=== PATIENT | male | born 1970 | race Caucasian/White ===

== ENCOUNTER 2023-11-30 19:36 | Emergency (ER) | payer SELFPAY ==
[2023-11-30 19:38] VITALS: BP 148/94; PULSE 94; RESP 22; TEMP 37.3; O2SAT 98; O2SAT 99
--- NOTE | 2023-11-30 20:18 | US_ITS ---
ACR Level 3 findings have been noted. An addendum which confirms receipt of the report will follow. EXAM: US SCROTUM CLINICAL INDICATION: testicular pain TECHNIQUE: Realtime ultrasound of the testicles was performed with grayscale and Color Doppler analysis. COMPARISON: No relevant prior studies available. FINDINGS: RIGHT TESTICLE: No significant abnormality. Normal in size and echotexture. No focal lesion. Normal blood flow is present. The right testicle measures 4.3 x 3.4 x 3.0 cm. LEFT TESTICLE: No significant abnormality. Normal in size and echotexture. No focal lesion. Normal blood flow is present. The left testicle measures 4.1 x 2.6 x 1.8 cm. EPIDIDYMIDES: The right epididymis is enlarged measuring up to 2.2 cm with hyperemia throughout the head and tail and containing cysts, the largest measuring 8 mm. Normal color Doppler flow pattern in the left epididymis. SCROTUM: There is a large complex right-sided scrotal fluid collection with septations. Asymmetric right greater than left scrotal wall thickening and edema. Small left-sided hydrocele. US/Testicular with Arterial Flow IMPRESSION: Findings consistent with right-sided epididymitis. No discrete evidence of orchitis or other testicular pathology. Complex right-sided scrotal fluid collection may be pyocele. Associated scrotal wall thickening which may be indicative of cellulitis. Electronically Signed: Finn Brown DO at 21:33 EDT ,
--- NOTE | 2023-11-30 20:24 | EX.ED.DYSGE1 ---
HPI <BRITNEY Goddard - Last Filed: 11/30/23 22:36> History of Present Illness Chief Complaint: Abd Pain Narrative Narrative: Patient is a 53-year-old male with history of thyroid cancer that is on Synthroid, hyperlipidemia, type 2 diabetes who presents to the emergency department lower abdominal pain, right testicular pain. Patient states that he was on vacation earlier this week, he was driving his motorcycle, including a long car ride. Monday when he woke up, he felt fullness in his right testicle, had some slight pain. He then rode his bike from [place] to home. He thought that he was fever, he was taking Tylenol and Aleve. Today, the pain in his right testicle, lower abdomen was severe, and he is here for evaluation. Patient states his right testicle was the size of a softball it is now smaller however still painful. Patient states the right scrotum feels full. [facility] <BRITNEY Goddard - Last Filed: 11/30/23 22:36> [facility] Medical History (Updated 11/30/23 @ 22:32 by BRITNEY Goddard) Strep throat Thyroid cancer Home Medications ?Medication ?Instructions ?Recorded ?Last Taken ?Type cholecalciferol (vitamin D3) 25 2,000 unit PO DAILY 08/12/14 07/04/16 History mcg (1,000 unit) tablet (Vitamin D3) metformin 500 mg tablet 500 mg PO BREAKFAST 08/12/14 07/04/16 History omeprazole 20 mg capsule,delayed 20 mg PO DAILY 05/28/15 07/03/16 History release amoxicillin 875 mg-potassium 875 mg PO Q12H ##20 07/04/16 Unknown Rx clavulanate 125 mg tablet dicyclomine 10 mg capsule 20 mg (2 x 10 mg) PO TIDAC ##30 07/04/16 Unknown Rx levothyroxine 100 mcg tablet 200 mcg PO DAILY 07/04/16 07/04/16 History oxycodone-acetaminophen 5 mg-325 1 - 2 tab PO Q4H PRN PRN Pain #20 07/04/16 Unknown Rx mg tablet tabs ciprofloxacin HCl 500 mg tablet 500 mg PO BID #20 tabs 11/30/23 Unknown Rx (Cipro) ondansetron 4 mg disintegrating 4 mg PO Q8H PRN PRN Nausea #10 tabs 11/30/23 Unknown Rx tablet oxycodone-acetaminophen 5 mg-325 1 tab PO Q8H PRN pain 3 days #10 11/30/23 Unknown Rx mg tablet (Percocet) tabs Allergy/AdvReac Type Severity Reaction Status Date / Time bee venom protein (honey bee) Allergy Severe Anaphylaxis Verified 11/26/21 14:22 Surgical History (Updated 11/30/23 @ 19:59 by Tracee Davis) H/O thyroidectomy Social History Smoking Status: Current every day smoker tobacco type: cigarettes ROS <CALE GoddardC - Last Filed: 11/30/23 22:36> ROS ED ROS Narrative Constitutional: Negative for fever, chills, weight loss, weakness Eyes: Negative for vision loss, vision change, double vision ENT: Negative for any sore throat, ear pain, congestion Cardiovascular: Negative for any chest pain, tightness, palpitations Respiratory: Negative for any cough, sputum production, hemoptysis, dyspnea, dyspnea on exertion, orthopnea Gastrointestinal: Negative for any vomiting, diarrhea, constipation, blood in stool, blood in vomit. Positive for abdominal pain, nausea : Negative for any urinary frequency, dysuria, retention. Positive blood in urine, testicular pain Muscle skeletal: Negative for any neck pain, back pain Neurological: Negative for any headache, syncope, dizziness Skin: Negative for any rashes, itching, abrasions, lacerations Psychiatric: Negative for any depression, anxiety, stress, suicidal ideation, homicidal ideation Hematologic: Negative for any excessive bruising, easy bleeding EXAM <BRITNEY Goddard - Last Filed: 11/30/23 22:36> Physical Exam Narrative Exam Narrative: Vital signs reviewed. HEET: Head normocephalic atraumatic, TMs clear bilaterally. Posterior pharynx is clear, moist mucous membranes. Nares clear bilaterally. Neck: Supple with no lymphadenopathy or tenderness. No signs of meningismus. Cardiac: Regular rate and rhythm no murmurs gallops or rubs, equal peripheral pulses bilaterally. Respiratory: Lungs clear to auscultation bilaterally. No chest tenderness. Abdomen: Soft, nondistended. No abdominal bruit or pulsatile masses. No hepatosplenomegaly. Tenderness to the suprapubic area Extremities: No peripheral edema, no signs of gross trauma or deformity. Active full range of motion of all extremities. Neuro: Cranial nerves II through XII intact, no focal neurological deficits. Skin: Clean dry and intact with no rash, purpura, petechiae, vesicles or pustules. Backs/flank: No CVA tenderness, no midline spinal tenderness, no deformity. Psych: Normal mood and affect. No SI, HI or acute psychosis. Testicular: Testicular exam was completed, scrotum was slightly red, patient's left testicle was normal. Patient's right testicle was tender, edematous, firm. The right-sided scrotum did appear full. Const Vital Signs: 11/30/23 19:38 11/30/23 19:38 11/30/23 21:00 Temperature 99.1 F 99.1 F 99.5 F H Temperature Source Temporal Temporal Oral Pulse Rate 94 94 92 Respiratory Rate 22 H 22 H 18 Blood Pressure 148/94 H 148/94 H 156/87 H Blood Pressure Mean 112 112 110 Pulse Ox 98 99 93 Oxygen Delivery Method Room Air Room Air Room Air 11/30/23 22:58 Temperature 99 F Temperature Source Pulse Rate 97 Respiratory Rate 16 Blood Pressure 145/78 H Blood Pressure Mean 100 Pulse Ox 97 Oxygen Delivery Method Positive well nourished and well developed General Appearance ED: well developed <Dr. Bud Varghese MD - Last Filed: 11/30/23 23:06> Physical Exam Const Vital Signs: 11/30/23 19:38 11/30/23 19:38 11/30/23 21:00 Temperature 99.1 F 99.1 F 99.5 F H Temperature Source Temporal Temporal Oral Pulse Rate 94 94 92 Respiratory Rate 22 H 22 H 18 Blood Pressure 148/94 H 148/94 H 156/87 H Blood Pressure Mean 112 112 110 Pulse Ox 98 99 93 Oxygen Delivery Method Room Air Room Air Room Air 11/30/23 22:58 Temperature 99 F Temperature Source Pulse Rate 97 Respiratory Rate 16 Blood Pressure 145/78 H Blood Pressure Mean 100 Pulse Ox 97 Oxygen Delivery Method MDM <BRITNEY Goddard - Last Filed: 11/30/23 22:36> MDM Lab Data Labs: Laboratory Results - last 24 hr 11/30/23 11/30/23 19:55 21:00 WBC 10.4 RBC 5.00 Hgb 14.6 Hct 43.8 MCV 87.6 MCH 29.2 MCHC 33.3 RDW Std Deviation 45.7 H RDW Coeff of Ming 14.3 Plt Count 304 MPV 9.9 Immature Gran % (Auto) 0.300 Neut % (Auto) 80.6 H Lymph % (Auto) 10.5 L Hemphill % (Auto) 6.2 Eos % (Auto) 1.8 Baso % (Auto) 0.6 Absolute Neuts (auto) 8.3 H Absolute Lymphs (auto) 1.09 Nucleated RBC % 0 Sodium 139 Potassium 3.7 Chloride 105 Carbon Dioxide 29.0 Anion Gap 5 BUN 13 Creatinine 1.22 Est GFR (MDRD) Af Amer 80 Est GFR (MDRD) Non-Af 66 BUN/Creatinine Ratio 10.7 Glucose 120 H Lactic Acid 1.4 Calcium 8.8 Total Bilirubin 1.10 H AST 15 ALT 28 Alkaline Phosphatase 74 Total Protein 7.3 Albumin 3.2 Globulin 4.1 Albumin/Globulin Ratio 0.8 L Lipase 43 Urine Color Yellow Urine Clarity Cloudy Urine pH 7.0 Ur Specific [place] 1.010 Urine Protein 30 H Urine Glucose (UA) Normal Urine Ketones Negative Urine Occult Blood 150 H Urine Nitrite Positive H Urine Bilirubin Negative Urine Urobilinogen 1 H Ur Leukocyte Esterase 500 H Urine RBC 0-5 SEEN Urine WBC 50-100 SEEN Ur Squamous Epith Cells 0 SEEN Urine Bacteria 4+ Hyaline Casts 0-5 SEEN Urine Mucus 0 SEEN Radiography Diagnostic Testing: Clinical Impression(s) from Imaging Studies Testicular Ultrasound 11/30/23 20:18 IMPRESSION: Findings consistent with right-sided epididymitis. No discrete evidence of orchitis or other testicular pathology. Complex right-sided scrotal fluid collection may be pyocele. Associated scrotal wall thickening which may be indicative of cellulitis. Electronically Signed: Finn Brown DO at 21:33 EDT , ADDENDUM: 11/30/23 9104 IMPRESSION: Findings consistent with right-sided epididymitis. No discrete evidence of orchitis or other testicular pathology. Complex right-sided scrotal fluid collection may be pyocele. Associated scrotal wall thickening which may be indicative of cellulitis. N.B. : Gretta Chong , OT, confirmed on 11/30/2023 21:47:12 (ET) that the healthcare facility has received the radiology report. Electronically Signed: Finn Brown, at 21:33 EDT , Treatment and Re-Evaluation :: Differential diagnosis includes however is not limited to: Testicular torsion, incarcerated hernia, scrotal cellulitis, Joe's gangrene, inguinal hernia Patient appears to be in no respiratory distress, patient does appear to be in slight pain secondary to the right testicle, lower abdominal pain. Patient will receive a full abdominal workup including CBC CMP lipase as well as lactic acid. IV fluids, Zofran and morphine will be given. Patient will receive a ultrasound of the scrotum. Patient be given oral Tylenol for fever. Patient will be reevaluated. Patient's laboratory values show a normal CBC, patient's chemistries show a lactic acid that is negative. Creatinine is 1.2 which is normal. Lipase was negative. Patient's urinalysis shows 4+ bacteria 5100 white blood cells, 500 leukocytes, positive nitrates. Patient's ultrasound showed findings consistent with right-sided epididymitis. No discrete evidence of orchitis or other testicular pathology. Complex right-sided scrotal fluid collection may be pyocele. Associated scrotal wall thickening which may be indicative of cellulitis. Secondary to this finding, I did reach out to urology, I spoke with Dr. Echevarria. He stated to start the patient on Cipro, pain medicine, and he will see the patient this upcoming Monday. I spoke with the patient he is agreeable. Patient will be given IV Rocephin. Urine will be sent for culture. Patient was given strict return precaution return for uncontrollable pain, fever, chills, nausea or vomiting. He is happy with the plan of care, stable for discharge. <Dr. Bud Varghese MD - Last Filed: 11/30/23 23:06> [facility] MDM Narrative Medical decision making narrative: I have personally performed a face to face assessment of the patient and have reviewed the PRETTY Note. I performed a substantive portion of the visit including all aspects of the following. My vasquez findings include: History is couple days of gradual onset pain swelling redness right hemiscrotum. Pain in the lower abdomen as well started a little after that. No nausea or vomiting. Developed low-grade fevers and thought he urinated some blood the other day. No rectal pain. Is a diabetic but blood sugars well-controlled. Exam is erythematous, swollen, tender right testicle and epididymis. The perineum is unaffected and nontender there is no subcutaneous emphysema. The left hemiscrotum is normal-appearing and nontender. There is some mild tenderness in the groin but the abdomen is fairly benign. No palpable lymph nodes, obesity limits this part of the exam. Cremasterics intact. Penis normal. Other than erythematous skin in the right hemiscrotum no rashes. Medical Decison Making will consider testicular torsion, epididymoorchitis, less likely to be indirect hernia, will start with ultrasound labs urinalysis and reevaluate. I reviewed his labs as well as his ultrasound images and result which I agree with; it is consistent with epididymitis on the right, no orchitis or torsion, there is also a cystic structure with complex fluid. We discussed with urology see below. Outpatient treatment/follow-up is acceptable. Other additions or changes: [None] Lab Data Labs: Laboratory Results - last 24 hr 11/30/23 11/30/23 19:55 21:00 WBC 10.4 RBC 5.00 Hgb 14.6 Hct 43.8 MCV 87.6 MCH 29.2 MCHC 33.3 RDW Std Deviation 45.7 H RDW Coeff of Ming 14.3 Plt Count 304 MPV 9.9 Immature Gran % (Auto) 0.300 Neut % (Auto) 80.6 H Lymph % (Auto) 10.5 L [place] % (Auto) 6.2 Eos % (Auto) 1.8 Baso % (Auto) 0.6 Absolute Neuts (auto) 8.3 H Absolute Lymphs (auto) 1.09 Nucleated RBC % 0 Sodium 139 Potassium 3.7 Chloride 105 Carbon Dioxide 29.0 Anion Gap 5 BUN 13 Creatinine 1.22 Est GFR (MDRD) Af Amer 80 Est GFR (MDRD) Non-Af 66 BUN/Creatinine Ratio 10.7 Glucose 120 H Lactic Acid 1.4 Calcium 8.8 Total Bilirubin 1.10 H AST 15 ALT 28 Alkaline Phosphatase 74 Total Protein 7.3 Albumin 3.2 Globulin 4.1 Albumin/Globulin Ratio 0.8 L Lipase 43 Urine Color Yellow Urine Clarity Cloudy Urine pH 7.0 Ur Specific [place] 1.010 Urine Protein 30 H Urine Glucose (UA) Normal Urine Ketones Negative Urine Occult Blood 150 H Urine Nitrite Positive H Urine Bilirubin Negative Urine Urobilinogen 1 H Ur Leukocyte Esterase 500 H Urine RBC 0-5 SEEN Urine WBC 50-100 SEEN Ur Squamous Epith Cells 0 SEEN Urine Bacteria 4+ Hyaline Casts 0-5 SEEN Urine Mucus 0 SEEN Radiography Diagnostic Testing: Clinical Impression(s) from Imaging Studies Testicular Ultrasound 11/30/23 20:18 IMPRESSION: Findings consistent with right-sided epididymitis. No discrete evidence of orchitis or other testicular pathology. Complex right-sided scrotal fluid collection may be pyocele. Associated scrotal wall thickening which may be indicative of cellulitis. Electronically Signed: Finn Brown DO at 21:33 EDT , ADDENDUM: 11/30/23 2154 IMPRESSION: Findings consistent with right-sided epididymitis. No discrete evidence of orchitis or other testicular pathology. Complex right-sided scrotal fluid collection may be pyocele. Associated scrotal wall thickening which may be indicative of cellulitis. N.B. : Gretta Chong OT, confirmed on 11/30/2023 21:47:12 (ET) that the healthcare facility has received the radiology report. Electronically Signed: Finn Brown DO at 21:33 EDT , Management Discussion w/another healthcare provider: [employer] (Urology) Discharge Plan Triage Chief Complaint: Abd Pain ED Midlevel Provider: Jordi Alonzo ED Provider: Bud Varghese Dx/Rx/DC Orders Clinical Impression: Acute epididymitis, Urinary tract infection, Swelling of right testicle, Pyocele Instructions: Urinary Tract Infections in Men, UTIs Understanding, ED Epididymitis, ED Hydrocele, Type Not Specified Prescriptions: New oxycodone-acetaminophen [Percocet] 5-325 mg tablet 1 tab PO Q8H PRN (Reason: pain) 3 Days Qty: 10 0RF ondansetron 4 mg tablet,disintegrating 4 mg PO Q8H PRN PRN (Reason: Nausea) Qty: 10 0RF ciprofloxacin HCl [Cipro] 500 mg tablet 500 mg PO BID Qty: 20 0RF No Action metformin 500 MG tablet 500 mg PO BREAKFAST Patient Comments: DIABETES cholecalciferol (vitamin D3) [Vitamin D3] 1,000 UNIT tablet 2,000 unit PO DAILY Patient Comments: SUPPLIMENT omeprazole 20 MG capsule 20 mg PO DAILY levothyroxine 100 MCG tablet 200 mcg PO DAILY oxycodone-acetaminophen 1 TABLET tablet 1 - 2 tab PO Q4H PRN PRN (Reason: Pain) Qty: 20 0RF dicyclomine 10 MG capsule 20 mg PO TIDAC Qty: 30 0RF amoxicillin-pot clavulanate 875 MG tablet 875 mg PO Q12H Qty: 20 0RF Primary Care Provider: Bryan Chavez Referrals: Bryan hCavez DO [Primary Care Provider] - Shaheed Echevarria MD [Med Staff - Active Staff] - Activity Restrictions/Additional Instructions: You are getting prescriptions for Cipro which is an antibiotic, take this until finished. You are getting Zofran for nausea as well as pain medicine. You need to follow-up with urology who is Dr. Echevarria. I spoke with him on the phone, he will follow-up with you on Monday. Please call tomorrow. Return for any worsening symptoms. Print Language: Setswana Disposition Disposition: Home, Self Care
[2023-11-30] MEDS: Ondansetron 4 MG/2 ML Vial IV ×2 (20:30→23:02)
[2023-11-30] MEDS: Acetaminophen 500 MG Tablet 1000 MG PO (20:30)
[2023-11-30] MEDS: Morphine 4 MG/ML Syringe IV ×2 (20:30→23:02)
[2023-11-30] MEDS: 0.9% Normal Saline (1000mL) 1,000 ML 999 ML IV (20:30)
[2023-11-30 20:44] LABS: Absolute Lymphocyte Count 1.09 X10^3/uL (0.83-4.51); Absolute Neutrophil Count 8.3 X10^3/uL (2.0-7.7); Basophil# 0.06 X10^3/uL; Basophil% 0.6 % (0-1); Eosinophil# 0.19 X10^3/uL; Eosinophils% 1.8 % (0-5); Hematocrit 43.8 % (40-54); Hemoglobin 14.6 g/dL (13.0-16.5); Lymphocyte # 1.09 X10^3/ul (0.83-4.51); Lymphocyte % 10.5 % (19-41); Mean Corp Hgb Conc 33.3 g/dL (32-36); Mean Corpuscular Hgb 29.2 pg (27.0-32.0); Mean Corpuscular Volume 87.6 fL (80-94); Mean Platelet Vol. 9.9 fl (6.2-12.0); Monocyte# 0.64 X10^3/uL; Monocyte% 6.2 % (0-10); NRBC Flagged by Analyzer 0 % (0-5); Neutrophil # 8.34 X10^3/uL (2.7-7.7); Neutrophil % 80.6 % (47-70); Platelet Count 304 K/mm3 (150-450); RBC Distribution Width CV 14.3 % (11.6-14.6); RBC Distribution Width SD 45.7 fl (35.1-43.9); White Blood Count 10.4 K/mm3 (4.4-11.0)
[2023-11-30 21:00] VITALS: BP 156/87; PULSE 92; RESP 18; TEMP 37.5; O2SAT 93
[2023-11-30 21:00] LABS: ALB/GLOB Ratio 0.8 RATIO (0.9-2.4); AST(SGOT) 15 U/L (15-37); Alanine Aminotransfer ALT/SGPT 28 U/L (16-61); Albumin, Serum 3.2 g/dL (3.2-5.0); Alkaline Phosphatase 74 U/L (45-117); Anion Gap 5 (5-15); BUN 13 mg/dL (7-18); BUN/Creat Ratio 10.7 RATIO (10-20); Calcium,Total 8.8 mg/dL (8.5-10.1); Chloride 105 mmol/L (98-107); Creatinine, Serum 1.22 mg/dL (0.70-1.30); EST Glomerular Filtration Rate 66 mL/min (>60); Est Glom Filt Rate - Afr Amer 80 mL/min (>60); Globulin 4.1 g/dL (2.2-4.2); Glucose 120 mg/dL (74-106); Lipase 43 U/L (13-75); Potassium 3.7 mmol/L (3.5-5.1); Protein, Total 7.3 g/dL (6.4-8.2); Sodium Level 139 mmol/L (136-145)
[2023-11-30 21:07] LABS: Lactic Acid 1.4 mmol/L (0.4-1.9)
[2023-11-30 21:14] LABS: Mucous, Urine 0 SEEN /hpf (<or=2+); Squamous Epithelial Cells - UA 0 SEEN /hpf (0-5)
[2023-11-30 21:20] LABS: Color, Urine Yellow (Yellow); Glucose, Dipstick Normal (Normal); Ketone-Dipstick Negative (Negative); Leukocyte Esterase-Dipstick 500 /ul (Negative); Nitrite-Dipstick Positive (Negative); Occult Blood-Urine 150 /ul (Negative); Protein-Dipstick 30 mg/dl (Negative); Urine Bilirubin Dipstick Negative (Negative); Urine Clarity Cloudy (Clear); Urine Urobilinogen 1 mg/dl (Normal)
[2023-11-30 21:38] LABS: Hyaline Cast 0-5 SEEN /lpf (0-5)
[2023-11-30 21:39] LABS: Red Blood Cells-Urine 0-5 SEEN /hpf (0-5)
[2023-11-30 21:40] LABS: Bacteria 4+ /hpf (None Seen); White Blood Cells 50-100 SEEN /hpf (0-5)
[2023-11-30] MEDS: Ceftriaxone 1 GM/50 ML BAG IV (22:22)
[2023-11-30 22:58] VITALS: BP 145/78; PULSE 97; RESP 16; TEMP 37.2; O2SAT 97
== END 2023-11-30 23:06 | disposition home or self-care (01) ==
PROVIDERS: Nurse Practitioner; Emergency Provider Emergency Medicine; PCP Student in an Organized Health Care Education/Training Program; Visit Provider Emergency Medicine
DX: N45.1 Epididymitis (principal); E11.9 Type 2 diabetes mellitus without complications; N50.89 Other specified disorders of the male genital organs; N39.0 Urinary tract infection, site not specified; F17.210 Nicotine dependence, cigarettes, uncomplicated; Z79.84 Long term (current) use of oral hypoglycemic drugs
CPT/HCPCS: 76870; 80053; 81001; 83605; 83690; 85025; 87086; 87088; 87186; 93976; 96361; 96365; 96375; 96376; 99284; J7030; A4216; J2405